=== PATIENT | male | born 1960 | race Caucasian/White ===

== ENCOUNTER → 2017-04-09 | Outpatient (CLI) | payer OTHER ==
[~2017-04-09] MED LIST: ALLOPURINOL300 MG PO; CELEBREX200 MG PO; DUEXIS 800-26.1 EACH PO; GADOBUTROL 10 MMOL/10 ML VIAL IV ONE; IOPAMIDOL 300 MG/ML 15ML VIAL IT ONE; LEVOXYL200 MCG PO; LIDOCAINE HCL 1% LOCAL INJ 20 ML VIAL ONE; LISINOPRIL PO; POTASSIUM CHLO10 ME1 PO; PRINIVIL20 MG PO; SYNTHROID PO; ZYRTEC10 M3 PO
--- NOTE | 2017-04-09 10:01 | Diagnostic Imaging Report ---
Right shoulder arthrogram April 09, 2017 Pre-Procedure Diagnosis: Right shoulder pain. Impingement syndrome. Post-procedure Diagnosis:Right shoulder pain. Impingement syndrome. Millwright Apprentice: Gerald Live Outdoor Illuminating Engineer: None Sedation: None. Heart rate and oxygen saturation were monitored in real-time. Blood pressure was measured in 5 minute increments. 1% lidocaine was used for local anesthesia. Radiation Dose: 10.51 mGy (cumulative air kerma) Fluoroscopy time: 0.4 minutes Estimate blood loss: <5 mL Blood administered: None Complications: None Implants/Grafts: None Specimen: None Procedure: Informed consent was obtained and the patient placed supine. A timeout was performed. The right shoulder was prepped and draped in standard sterile fashion. Using fluoroscopic guidance a 22-gauge spinal needle was advanced into the right shoulder joint. Upon confirmation of positioning with iodinated contrast injection, a 10 mL solution consisting of 0.1 mL gadolinium, 5 mL normal saline and 5 mL 1% lidocaine was injected without complication. The needle was removed and a sterile dressing applied. Findings: Please see MRI of the same date for findings. Impression: Successful right shoulder arthrogram. This report was generated with voice-recognition technology. Errors in validation consultant can occur. Please interpret accordingly and contact a radiologist if there are any questions regarding the report. Signed by: Dr. Pedro Live M.D. on 04/09/2017 9:57 AM
--- NOTE | 2017-04-09 11:15 | Diagnostic Imaging Report ---
TECHNIQUE: Magnetic resonance imaging of the RIGHT SHOULDER was performed after intra-articular injection of contrast. COMPARISON: None available. HISTORY: Pain FINDINGS: MUSCLES AND TENDONS: Rotator Cuff: Tendons: Partial-thickness articular sided and interstitial tear of the supraspinatus at the humeral insertion. No full-thickness tear, retraction, or atrophy. Muscles: No focal muscle atrophy. Biceps Tendon: The long head of the biceps tendon is intact and within the intertubercular groove. GLENOHUMERAL JOINT: Glenoid Labrum: Superior and posterior labral tear. Articular Cartilage: Partial thickness cartilage loss without full-thickness defect. AC JOINT AND ACROMION: Moderate hypertrophic degenerative changes of the acromioclavicular joint. Mild subacromial spurring. Bone: No focal or infiltrative bone marrow replacing abnormality. No acute fracture. Soft Tissues: Subacromial subdeltoid bursitis. IMPRESSION: Supraspinatus partial-thickness articular sided and interstitial tearing at the humeral insertion. No full-thickness tear, retraction, or atrophy. SLAP type tear involving the superior and posterior labrum. Signed by: Dr. Hieu Lozano M.D. on 04/09/2017 11:12 AM
== END ==
LOC: DX 07:03
PROVIDERS: ATTEND Specialist
DX: S43.431A Superior glenoid labrum lesion of right shoulder, initial encounter (principal); M75.41 Impingement syndrome of right shoulder
CPT/HCPCS: 23350; 73222; 77002; A9585; J2001; Q9967

== ENCOUNTER → 2017-04-23 | Day surgery (SDC) | payer OTHER ==
[~2017-04-23] MED LIST changes: +ACETAMINOPHEN 1000 MG/100 ML IV ONE; +CEFAZOLIN SOD 2 GM/D5W 50ML 50 ML IV ONE; +DEXAMETHASONE SOD PHOS INJ 4 MG/ML VIAL ONE; +EPHEDRINE SULFATE INJ 50 MG/10 ML SYR ONE; +FENTANYL CITRATE/PF 100MCG/2 ML INJ ONE; -GADOBUTROL 10 MMOL/10 ML VIAL IV ONE; +GLYCOPYRROLATE INJ 1MG/ 5 ML SYR ONE; -IOPAMIDOL 300 MG/ML 15ML VIAL IT ONE; -LIDOCAINE HCL 1% LOCAL INJ 20 ML VIAL ONE; +LIDOCAINE HCL 2% LOCAL 20 ML VIAL ONE; +LIDOCAINE HCL 2% LOCAL INJ 5 ML SDV VIAL INJ ONE; +MIDAZOLAM HCL 2 MG/2 ML VIAL ONE; +NEOSTIGMINE 5 MG/5ML SYR ONE; +ONDANSETRON HCL INJ 2 MG/ML VIAL ONE; +PROPOFOL IV EMULSION 10 MG/ML 20 ML VIAL ONE; +ROCURONIUM BROMIDE 10 MG/ML 5ML VIAL ONE; +ROPIVACAINE 0.5% 5 MG/ML 30 ML SDV ONE; +SEVOFLURANE INHAL SOLN 250 ML PEN BTL ONE
--- NOTE | 2017-04-24 16:37 | Operative Report ---
DATE OF PROCEDURE: April 23, 2017 PREOPERATIVE DIAGNOSES 1. Right shoulder labral tear. 2. Right shoulder rotator cuff tear. POSTOPERATIVE DIAGNOSES 1. Right shoulder rotator cuff tear. 2. Right shoulder labral tear. 3. Right shoulder synovitis. OPERATIONS/PROCEDURES PERFORMED 1. Patient underwent a right shoulder examination under anesthesia. 2. Right shoulder arthroscopy. 3. Right shoulder arthroscopic debridement synovitis. 4. Right shoulder arthroscopic biceps tenodesis. 5. Right shoulder arthroscopic rotator cuff reconstruction. 6. Right shoulder arthroscopic subacromial decompression and acromioplasty. CORE BLOWER: Mary Alice Mckenna. ANESTHESIA: General endotracheal intubation anesthesia. IV FLUIDS: Per the anesthesia record. BRIEF DESCRIPTION OF OPERATIVE PROCEDURE: Mr. Ocasio was taken to operating room, placed in the supine position on the operating room table. Following the induction of general anesthesia as well as endotracheal intubation, the patient's right upper extremity was examined under anesthesia. He was found to have full passive range of motion of the shoulder joint. There was no evidence of instability. The patient's upper extremity was prepped draped in standard surgical fashion. Standard posterolateral and anterior portals were created with difficulty. The scope was placed within the shoulder joint atraumatically. Examination of the glenohumeral articulation demonstrated no significant evidence of chondromalacia. There were no loose bodies in the shoulder joint. Examination of the rotator cuff tissue demonstrated a partial thickness tearing of the rotator cuff with greater than 50% of the insertion site involved. A probe was placed in the shoulder joint. Examination of the labrum demonstrated diffuse tearing of the labrum with extension into the biceps tendon. A shaver was placed in the shoulder joint, and the labral tear was debrided. The biceps tendon injury was also debrided at this time. Given the extensive nature of the injury and the relative lack of tissue available to reattach the labrum to the glenoid, a biceps tenodesis was undertaken. The rotator interval was debrided. Sutures were shuttled through the rotator interval capturing the biceps tendon. The biceps tendon was then released from the superior aspect of the labrum. Hemostasis was obtained. The rotator cuff tissue was also debrided at this time as well as the insertion site. There was also synovitis in the shoulder joint that was debrided at this time. The rotator cuff was then elevated in the region where it was torn and a shaver was used to further debride the insertion site to a bleeding bony bed. The shoulder was deflated of its normal saline. The scope was placed in a subacromial space and significant bursal inflammation was encountered. A lateral portal was created through outside-in technique. A bursectomy was performed. The sutures for the biceps tenodesis were identified at the level of the rotator interval and protected throughout the remainder of the case. The rotator cuff injury was also identified at this time. The insertion site was further debrided. An anterolateral portal was created in the shoulder and a suture anchor was inserted into the greater tuberosity of the humerus. The suture arms from the anchor were then woven through the rotator cuff tissue and the rotator cuff tissue was then advanced into its normal insertion site. The sutures were tied firmly reattaching the rotator cuff to its normal insertion. The coracoacromial ligament was then resected. An aggressive acromioplasty was performed at this time. The arm was placed through range of motion. He was found to no longer have any impingement. The shoulder was deflated of its sterile normal saline. The portal sites were closed. The sterile dressings were applied. The patient was provided with a shoulder immobilizer, awakened, and taken to post anesthesia care in stable condition. Mary Alice Mckenna acted as web marketing assistant for this case and was necessary for both prepping and draping the patient as well as positioning the arm and passage of suture that allowed this case to be successful. Job#: [id number] MIO
== END | disposition home or self-care (01) ==
LOC: OR 06:09
PROVIDERS: ATTEND Specialist
DX: S46.091A Other injury of muscle(s) and tendon(s) of the rotator cuff of right shoulder, initial encounter (principal); S43.431A Superior glenoid labrum lesion of right shoulder, initial encounter; S46.211A Strain of muscle, fascia and tendon of other parts of biceps, right arm, initial encounter; M65.811 Other synovitis and tenosynovitis, right shoulder; I10 Essential (primary) hypertension; J45.909 Unspecified asthma, uncomplicated; X58.XXXA Exposure to other specified factors, initial encounter; Z01.810 Encounter for preprocedural cardiovascular examination
CPT/HCPCS: 29826; 29827; 29828; 93005; J1100; J2001 ×2; J2250; J2405; J2795

== ENCOUNTER 2017-08-05 10:00 | Outpatient (RCR) | payer OTHER ==
[~2017-08-05 10:00] MED LIST changes: -ACETAMINOPHEN 1000 MG/100 ML IV ONE; -CEFAZOLIN SOD 2 GM/D5W 50ML 50 ML IV ONE; -DEXAMETHASONE SOD PHOS INJ 4 MG/ML VIAL ONE; -EPHEDRINE SULFATE INJ 50 MG/10 ML SYR ONE; -FENTANYL CITRATE/PF 100MCG/2 ML INJ ONE; -GLYCOPYRROLATE INJ 1MG/ 5 ML SYR ONE; -LIDOCAINE HCL 2% LOCAL 20 ML VIAL ONE; -LIDOCAINE HCL 2% LOCAL INJ 5 ML SDV VIAL INJ ONE; -MIDAZOLAM HCL 2 MG/2 ML VIAL ONE; -NEOSTIGMINE 5 MG/5ML SYR ONE; -ONDANSETRON HCL INJ 2 MG/ML VIAL ONE; -PROPOFOL IV EMULSION 10 MG/ML 20 ML VIAL ONE; -ROCURONIUM BROMIDE 10 MG/ML 5ML VIAL ONE; -ROPIVACAINE 0.5% 5 MG/ML 30 ML SDV ONE; -SEVOFLURANE INHAL SOLN 250 ML PEN BTL ONE
== END 2017-08-18 ==
LOC: PT 10:00
PROVIDERS: ATTEND Specialist
DX: M25.511 Pain in right shoulder (principal); M25.611 Stiffness of right shoulder, not elsewhere classified; M62.81 Muscle weakness (generalized)

== ENCOUNTER 2017-08-21 10:24 | Outpatient (RCR) | payer OTHER ==
[2017-09-09] MEDS ORDERED: ZYRTEC-D TABLE1 EACH PO (15:09)
== END 2017-09-18 ==
LOC: PT 10:24
PROVIDERS: ATTEND Specialist
DX: S43.421A Sprain of right rotator cuff capsule, initial encounter (principal); M25.511 Pain in right shoulder; M25.611 Stiffness of right shoulder, not elsewhere classified; M62.81 Muscle weakness (generalized)
CPT/HCPCS: 97139

== ENCOUNTER → 2017-09-12 | Day surgery (SDC) | payer OTHER ==
--- NOTE | 2017-09-09 15:40 | Diagnostic Imaging Report ---
PROCEDURE: Frontal and lateral views of the chest. COMPARISON: [facility], , CHEST 2 VIEWS, 08/17/2014, 15:40. INDICATIONS: PRE OP FOOT SURGERY FINDINGS: Lines/tubes: None. Lungs: The lungs are well inflated and clear. Previously described patchy opacity in the right lower lung and nodular opacity in the right midlung are not seen on current exam. There is no evidence of pneumonia or pulmonary edema. Pleura: There is no pleural effusion or pneumothorax. Mild eventration of the posterior left hemidiaphragm. Heart and mediastinum: The heart and the mediastinum are normal. Bones: No acute bony abnormality. IMPRESSION: 1. No acute cardiopulmonary abnormalities. Sagar Tenorio M.D. Dictated by: Sagar Tenorio M.D. on 09/09/2017 at 15:43 Electronically approved by: Sagar Tenorio M.D. on 09/09/2017 at 15:43
[~2017-09-12] MED LIST changes: +ACETAMINOPHEN 1000 MG/100 ML 100 ML IV ONE; +BUPIVACAINE HCL 0.5% 10ML MPF VIAL INJ ONE; +CEFAZOLIN SOD 2 GM/D5W 50ML 50 ML IV ONE; +DEXAMETHASONE SOD PHOS INJ 4 MG/ML VIAL ONE; +EPHEDRINE SULFATE INJ 50 MG/10 ML SYR ONE; +FENTANYL CITRATE/PF 100MCG/2 ML INJ ONE; +KETOROLAC TROMETHAMINE 30 MG/ML VIAL ONE; +LIDOCAINE HCL 2% LOCAL INJ 5 ML SDV VIAL INJ ONE; +MIDAZOLAM HCL 2 MG/2 ML VIAL ONE; +MUPIROCIN 2% OINT 22 GM TUBE ONE; +ONDANSETRON HCL INJ 2 MG/ML VIAL ONE; +PROPOFOL IV EMULSION 10 MG/ML 20 ML VIAL ONE; +SEVOFLURANE INHAL SOLN 250 ML PEN BTL ONE; +ZYRTEC-D TABLE1 EACH PO
--- OUTSIDE RECORDS SUMMARY | 2017-09-12 05:56 | XMS REPORT | Continuity of Care Document ---
Author Author [facility] Organization [facility] Address [address] [place] [address] Phone Unavailable Care Team Providers Care Factory Superintendent Name Role Phone NONSTAFF PCP Unavailable Insurance Providers Guarantor Robin Hollis Address [address] [place] [address] Email [email or web address] Payer [facility] [employer] Policy Number [id number] Subscriber's Name Robin Hollis Relationship 18 Self / Same As Patient Group Number [id number] Group Name [employer] Effective Date 16 Advance Directives Directive Response Recorded Date/Time Does the patient have an advance directive? Yes 07/21/17 1:37pm If yes, is advance directive on file with [facility]? No 12/24/11 2:35pm If not on file with [facility] will patient provide a copy? No 12/24/11 2:35pm Do you have a Directive to Physician? No 07/11/17 1:15pm Do you have a Medical Power of Certified Nursing Assistant? Yes 07/21/17 1:37pm Do you have an out of hospital Do Not Resuscitate Order? No 07/11/17 1:15pm Do you have any special needs we should be aware of? No 07/11/17 1:15pm Do you have a support person here with you today? No 07/11/17 1:16pm Did patient receive Notice of Privacy Practices? No 07/21/17 1:37pm Did patient receive patient rights and responsibilities? No 07/21/17 1:37pm Problems No problem information available. Medications Current Home Medications Medication Dose Units Route Directions Days Qty Instructions Start Date Allopurinol 300 Mg Tablet 300 Mg Oral Daily 30 Tab Celecoxib (Celebrex) 200 Mg Capsule 200 Mg Oral Daily Levothyroxine Sodium (Levoxyl) 200 Mcg Tablet 200 Mcg Oral Daily Lisinopril (Prinivil) 20 Mg Tablet 20 Mg Oral Daily Potassium Chloride 10 Meq Tab.er.prt 10 Meq Oral Daily Past Home Medications Medication Directions Ordered Status Cetirizine Hcl (Zyrtec) 10 Mg Capsule, 10 Mg Oral Daily Discontinued Ibuprofen/Famotidine (Duexis 800-26.6 Mg Tablet) 1 Each Tablet, 800 Mg Oral Three Times A Day Discontinued Lisinopril , 20 Mg Oral Daily Discontinued Synthroid , 200 Mcg Oral Daily Discontinued Social History No social history information available. Hospital Discharge Instructions No hospital discharge instruction information available. Plan of Care Prescriptions See Medication Section Functional Status No functional status information available. Allergies, Adverse Reactions, Alerts No known allergies. Immunizations No immunization information available. Vital Signs No vital sign information available. Results No relevant diagnostic test, laboratory data and/or discharge summary information available. Procedures Procedure Status Date Provider(s) REMOVAL OF SUPPORT IMPLANT Completed 01/09/17 EVANGELIST DOUGLAS A DPM EXC FOOT/TOE LILIANA SC < 1.5 CM Completed 01/09/17 EVANGELIST DOUGLAS A DPM CORRJ HALUX RIGDUS W/IMPLT Completed 01/09/17 EVANGELIST DOUGLAS DPM SHOULDER ARTHROSCOPY/SURGERY Completed 04/23/17 SOPHIA GARCIA MD ARTHROSCOP ROTATOR CUFF REPR Completed 04/23/17 SOPHIA GARCIA MD ARTHROSCOPY BICEPS TENODESIS Completed 04/23/17 SOPHIA GARCIA MD MRI joint extremity upper w contrast Active 04/09/17 SOPHIA GARCIA MD Encounters Encounter Location Arrival/Admit Date Discharge/Depart Date Attending Provider Discharged Recurring [facility] 08/05/17 10:00am 11:59pm SOPHIA GARCIA MD Registered Surgical Day Care [facility] 04/23/17 6:09am SOPHIA GARCIA MD Registered Clinic [facility] 04/09/17 7:03am SOPHIA GARCIA MD Registered Surgical Day Care [facility] 01/09/17 5:36am EVANGELIST DOUGLAS DPM
--- OUTSIDE RECORDS SUMMARY | 2017-09-12 05:57 | XMS REPORT ---
Author Author [facility] Address Unknown Phone Unavailable Care Team Providers Care Diamond Sander Name Role Phone SARA JOHNSON Unavailable Unavailable SOPHIA GARCIA Unavailable Unavailable Problems This patient has no known problems. Allergies, Adverse Reactions, Alerts This patient has no known allergies or adverse reactions. Medications This patient has no known medications. Results Test Description Test Time Test Comments Text Results Atomic Results Result Comments CHEST 2 VIEWS [facility] [address] [address] Patient Name: BRENNA HOLLIS MR #: [id number] : 1960 Age/Sex: 57/M Req #: [id number] Adm Physician: Ordered by: SARA JOHNSON DPM Report #: [id number] Location: OR Room/Bed: Procedure: [id number] DX/CHEST 2 VIEWS Exam Date: Exam Time: REPORT STATUS: Signed PROCEDURE: Frontal and lateral views of the chest. COMPARISON: [facility], DX, CHEST 2 VIEWS, 08/17/2014, 15: 40. INDICATIONS: PRE OP FOOT SURGERY FINDINGS: Lines/tubes: None. Lungs: The lungs are well inflated and clear. Previously described patchy opacity in the right lower lung and nodular opacity in the right midlung are not seen on current exam. There is no evidence of pneumonia or pulmonary edema. Pleura: There is no pleural effusion or pneumothorax. Mild eventration of the posterior left hemidiaphragm. Heart and mediastinum: The heart and the mediastinum are normal. Bones: No acute bony abnormality. IMPRESSION: 1. No acute cardiopulmonary abnormalities. Farrah Tenorio M.D. Dictated by : Farrah Tenorio M.D. on 09/09/2017 at 15:43 Electronically approved by: Farrah Tenorio M.D. on 09/09/2017 at 15:43 Dictated By : FARRAH TENORIO MD 42 Transcribed By: TOLU on 09/09/171542 COPY TO: SARA JOHNSON DPM INJECTION ARTHROGRAM SHOULDER [address] [address] Patient Name: BRENNA HOLLIS MR #: [id number] : 1960 Age/Sex: 56/M Req #: [id number] [facility] Physician: Ordered by: SOPHIA GARCIA MD Report #: [id number] Location: DX Room/Bed: Procedure: [id number] IR/INJECTION ARTHROGRAM SHOULDER Exam Date: 04/09/17 Exam Time: 0810 REPORT STATUS: Signed Right shoulder arthrogram April 09, 2017 Pre-Procedure Diagnosis: Right shoulder pain. Impingement syndrome. Post-procedure Diagnosis:Right shoulder pain. Impingement syndrome. Policy Adviser: Gerald Live Creative/Art Director: None Sedation: None. Heart rate and oxygen saturation were monitored in real-time. Blood pressure was measured in 5 minute increments. 1% lidocaine was used for local anesthesia. Radiation Dose: 10.51 mGy (cumulative air kerma) Fluoroscopy time: 0.4 minutes Estimate blood loss: <5 mL Blood administered : None Complications: None Implants/Grafts: None Specimen: None Procedure: Informed consent was obtained and the patient placed supine. A timeout was performed. The right shoulder was prepped and draped in standard sterile fashion. Using fluoroscopic guidance a 22-gauge spinal needle was advanced into the right shoulder joint. Upon confirmation of positioning with iodinated contrast injection, a 10 mL solution consisting of 0.1 mL gadolinium, 5 mL normal saline and 5 mL 1% lidocaine was injected without complication. The needle was removed and a sterile dressing applied. Findings: Please see MRI of the same date for findings. Impression: Successful right shoulder arthrogram. This report was generated with voice-recognition technology. Errors in plasma center technician can occur. Please interpret accordingly and contact a radiologist if there are any questions regarding the report. Signed by: Dr. Cristiano Live M.D. on 04/09/2017 9: 57 AM Dictated By: CRISTIANO LIVE MD 6 Transcribed By: LONI on 04/09/17956 COPY TO: SOPHIA GARCIA MD MRI SHOULDER RIGHT [address] [address] Patient Name: BRENNA HOLLIS MR #: [id number] : 1960 Age/Sex: 56/M Req # : [id number] [facility] Physician: Ordered by: SOPHIA GARCIA MD Report #: [id number] Location: DX Room/Bed: Procedure: [id number] MRI/MRI SHOULDER RIGHT W Exam Date: 04/09/17 Exam Time: 0930 REPORT STATUS: Signed TECHNIQUE: Magnetic resonance imaging of the RIGHT SHOULDER was performed after intra-articular injection of contrast. COMPARISON: None available. HISTORY: Pain FINDINGS : MUSCLES AND TENDONS: Rotator Cuff: Tendons: Partial- thickness articular sided and interstitial tear of the supraspinatus at the humeral insertion. No full-thickness tear, retraction, or atrophy. Muscles: No focal muscle atrophy. Biceps Tendon: The long head of the biceps tendon is intact and within the intertubercular groove. GLENOHUMERAL JOINT: Glenoid Labrum: Superior and posterior labral tear. Articular Cartilage: Partial thickness cartilage loss without full- thickness defect. AC JOINT AND ACROMION: Moderate hypertrophic degenerative changes of the acromioclavicular joint. Mild subacromial spurring. Bone: No focal or infiltrative bone marrow replacing abnormality. No acute fracture. Soft Tissues: Subacromial subdeltoid bursitis. IMPRESSION: Supraspinatus partial-thickness articular sided and interstitial tearing at the humeral insertion. No full- thickness tear, retraction, or atrophy. SLAP type tear involving the superior and posterior labrum. Signed by: Dr. Alek Young M.D. on 04/09 11:12 AM Dictated By: ALEK YOUNG MD 111 Transcribed By: LONI on 04/09/171111 COPY TO: SOPHIA GARCIA MD FLURO GUIDE NEEDLE PLMT/LOC [place] [address] [address] Patient Name: BRENNA HOLLIS MR #: [id number] : 1960 Age/Sex: 56/M Req #: [id number] Adm Physician: Ordered by: SOPHIA GARCIA MD Report #: [id number] Location: DX Room/Bed: Procedure: [id number] DX/FLURO GUIDE NEEDLE PLMT/LOC DE Exam Date: Exam Time: REPORT STATUS: Signed Right shoulder arthrogram April 09, 2017 Pre-Procedure Diagnosis: Right shoulder pain. Impingement syndrome. Post-procedure Diagnosis:Right shoulder pain. Impingement syndrome. Policy Adviser: Gerald Live Creative/Art Director: None Sedation : None. Heart rate and oxygen saturation were monitored in real-time. Blood pressure was measured in 5 minute increments. 1% lidocaine was used for local anesthesia. Radiation Dose: 10.51 mGy (cumulative air kerma) Fluoroscopy time: 0.4 minutes Estimate blood loss: <5 mL Blood administered: None Complications: None Implants/Grafts: None Specimen: None Procedure: Informed consent was obtained and the patient placed supine. A timeout was performed. The right shoulder was prepped and draped in standard sterile fashion. Using fluoroscopic guidance a 22-gauge spinal needle was advanced into the right shoulder joint. Upon confirmation of positioning with iodinated contrast injection, a 10 mL solution consisting of 0.1 mL gadolinium , 5 mL normal saline and 5 mL 1% lidocaine was injected without complication. The needle was removed and a sterile dressing applied. Findings: Please see MRI of the same date for findings. Impression: Successful right shoulder arthrogram. This report was generated with voice- recognition technology. Errors in plasma center technician can occur. Please interpret accordingly and contact a radiologist if there are any questions regarding the report. Signed by: Dr. Cristiano Live M.D. on 04/09/2017 9:57 AM Dictated By: CRISTIANO LIVE MD Transcribed By: LONI on 04/09/1757 COPY TO: SOPHIA GARCIA MD
--- NOTE | 2017-09-12 13:07 | Operative Report ---
DATE OF PROCEDURE: September 12, 2017 PREOPERATIVE DIAGNOSES 1. Soft-tissue tumor, right foot. 2. Bone cyst, distal aspect, right 5th metatarsal. 3. Dorsal scarring, right foot. POSTOPERATIVE DIAGNOSES 1. Soft-tissue tumor, right foot. 2. Bone cyst, distal aspect, right 5th metatarsal. 3. Dorsal scarring, right foot. TITLE OF OPERATION 1. Excision of bone cyst, right foot. 2. Excision of tumor, right foot. 3. Scar revision with flap closure, right foot. ANESTHESIA: General endotracheal. HEMOSTASIS: Right thigh tourniquet at 350 mmHg. PROCEDURE IN DETAIL: The patient was taken to the operating room in a mildly sedated state and placed upon the operating room table in the supine position. Following induction of general anesthetic, the right lower extremity was elevated to 60 degrees to exsanguinate before inflating the pneumatic thigh tourniquet to 350 mmHg to create hemostasis. The right lower extremity was placed upon the operating table prior to performing the following procedure: Procedure #1: Evaluation of the right foot. There is a very large, lobulated growth, fibrous-type tumor, at the dorsal, plantar and lateral aspects of the right foot. This was overlying a previously resected 5th met head where the remaining bone appears cystic. An incision was made to bone and deep wound, and bone cultures were obtained of the 5th metatarsal area. The fibrous, cystic, tumorous lesion was circumscribed and, with a combination of sharp and blunt dissection utilizing dissecting scissors as well as a #15 blade, this tumor was entirely removed from the underlying tissues. A dorsal scar excision was performed with 2 converging semielliptical incisions and a plantar flap created to rotate up. The large tumor was resected and sent to pathology. This was fibrous and vascular in nature. All superficial and deep bleeders were electrocoagulated. The cystic bone head was resected in an angular fashion to remove pressure points. The areas were all irrigated with copious amounts of sterile saline solution. Both bone and soft-tissue tumor were sent to pathology. After irrigation, a thin layer of human tissue allograft was applied to the bone stump as well as the internal layer of soft tissue including muscle and subcutaneous tissue to facilitate closure and to hopefully prevent what has been 3-time recurrent growth. This patient has had this removed on 3 separate occasions, each with increasingly aggressive debridements. The wound itself was treated with a TLS drain over the packed grafting. Deep closure was 3-0 Vicryl. Skin closure was 4-0 nylon. The TLS drain was noted to be functional after release of the pneumatic thigh tourniquet. The appropriate mildly compressive dressings were applied. The patient left the operating room with vital signs stable and in apparent satisfactory condition, after having tolerated both the anesthetic and the procedure very well. Job#: [id number]
== END | disposition home or self-care (01) ==
LOC: OR 05:55
PROVIDERS: ATTEND Podiatrist Foot Surgery
DX: D21.21 Benign neoplasm of connective and other soft tissue of right lower limb, including hip (principal); M85.671 Other cyst of bone, right ankle and foot; L90.5 Scar conditions and fibrosis of skin; E03.9 Hypothyroidism, unspecified; I10 Essential (primary) hypertension; T78.40XA Allergy, unspecified, initial encounter; F41.9 Anxiety disorder, unspecified; G47.33 Obstructive sleep apnea (adult) (pediatric); I44.4 Left anterior fascicular block; X58.XXXA Exposure to other specified factors, initial encounter; Z01.810 Encounter for preprocedural cardiovascular examination; Z01.818 Encounter for other preprocedural examination
CPT/HCPCS: 28288; 71046; 76000; 87071; 87205; 88304; 88305; 88311; 93005; J1100; J1885; J2001; J2250; J2405; 87075; 88307

== ENCOUNTER 2024-07-05 15:13 | Emergency (ER) | payer OTHER ==
[~2024-07-05] VITALS: Ht 167.6 cm; Wt 82.1 kg
[~2024-07-05 15:13] MED LIST changes: -ACETAMINOPHEN 1000 MG/100 ML 100 ML IV ONE; -BUPIVACAINE HCL 0.5% 10ML MPF VIAL INJ ONE; -CEFAZOLIN SOD 2 GM/D5W 50ML 50 ML IV ONE; -DEXAMETHASONE SOD PHOS INJ 4 MG/ML VIAL ONE; -EPHEDRINE SULFATE INJ 50 MG/10 ML SYR ONE; -FENTANYL CITRATE/PF 100MCG/2 ML INJ ONE; -KETOROLAC TROMETHAMINE 30 MG/ML VIAL ONE; -LIDOCAINE HCL 2% LOCAL INJ 5 ML SDV VIAL INJ ONE; -MIDAZOLAM HCL 2 MG/2 ML VIAL ONE; -MUPIROCIN 2% OINT 22 GM TUBE ONE; -ONDANSETRON HCL INJ 2 MG/ML VIAL ONE; -PROPOFOL IV EMULSION 10 MG/ML 20 ML VIAL ONE; -SEVOFLURANE INHAL SOLN 250 ML PEN BTL ONE
[2024-07-05 15:49] LABS: BASOPHILS % 0.3 % (0.0-1.0); EOSINOPHILS % 0.1 % (0.0-6.0); HEMATOCRIT 35.6 % (38.2-49.6); HEMOGLOBIN 11.9 g/dL (14.0-18.0); LYMPHOCYTES # (AUTO) 0.8 (1.0-3.2); LYMPHOCYTES % 8.7 % (18.0-39.1); MEAN CORPUSCULAR HEMOGLOBIN 29.7 pg (28-32); MEAN CORPUSCULAR HGB CONC 33.4 g/dL (31-35); MEAN CORPUSCULAR VOLUME 88.8 fL (81-99); MONOCYTES # (AUTO) 0.7 (0.2-0.8); MONOCYTES % 8.3 % (4.4-11.3); NEUTROPHILS # (AUTO) 7.1 (2.1-6.9); NEUTROPHILS % 82.4 % (38.7-80.0); PLATELET COUNT 195 x10e3/uL (140-360); RED BLOOD COUNT 4.01 x10e6/uL (4.3-5.7); RED CELL DISTRIBUTION WIDTH 12.9 % (11.7-14.4); WHITE BLOOD COUNT 8.66 x10e3/uL (4.8-10.8)
[2024-07-05 16:06] LABS: ALBUMIN 3.8 g/dL (3.5-5.0); ALBUMIN/GLOBULIN RATIO 1.1 (0.8-2.0); ANION GAP 13.3 mmol/L (8-16); BILIRUBIN,TOTAL 1.5 mg/dL (0.2-1.2); CALCIUM 9.2 mg/dL (8.4-10.2); CREATININE, SERUM 0.92 mg/dL (0.72-1.25); POTASSIUM 4.3 mmol/L (3.5-5.1); TOTAL PROTEIN 7.2 g/dL (6.5-8.1)
[2024-07-05] MEDS ORDERED: IOPAMIDOL 370 MG/ML 100 ML INFUS..BTL INJ ONE (16:19)
[2024-07-05] MEDS: KETOROLAC TROMETHAMINE 30 MG/ML VIAL IV STA (17:19)
[2024-07-05] MEDS: HYDROCODONE/APAP 5MG-325MG TAB PO ONE (17:20)
[2024-07-05] MEDS ORDERED: DOXYCYCLINE HY100 MG PO (18:04)
[2024-07-05] MEDS ORDERED: HYDROCODON-ACE1 EA11 PO (18:04)
[2024-07-05] MEDS ORDERED: NAPROXEN250 MG PO (18:05)
[2024-07-05 18:20] VITALS: PULSE 94; RESP 20; O2SAT 97
[2024-07-05 18:34] VITALS: PULSE 89; RESP 18; TEMP 98.2; O2SAT 98
== END 2024-07-05 18:43 | disposition home or self-care (01) ==
LOC: ER 15:22
DX: S22.42XA Multiple fractures of ribs, left side, initial encounter for closed fracture (principal); W18.2XXA Fall in (into) shower or empty bathtub, initial encounter; Y93.E1 Activity, personal bathing and showering; Y92.89 Other specified places as the place of occurrence of the external cause; I10 Essential (primary) hypertension; E03.9 Hypothyroidism, unspecified; K21.9 Gastro-esophageal reflux disease without esophagitis; F41.9 Anxiety disorder, unspecified; Z98.84 Bariatric surgery status
CPT/HCPCS: 36415; 71260; 74177; 80053; 85025; 94799; 99284; J1885; Q9967